=== PATIENT | male | born 1960 | race Caucasian/White ===

== ENCOUNTER 2016-12-02 16:40 | Emergency (ER) | payer OTHER, MEDICARE ==
[~2016-12-02] VITALS: Ht 175.3 cm; Wt 85.9 kg
[2016-12-02] MEDS ORDERED: SULI150T PO (17:02)
[2016-12-02] MEDS ORDERED: OXYC1TAB23 PO (17:02)
[2016-12-02] MEDS ORDERED: PANT40TA2 PO (17:02)
[2016-12-02] MEDS ORDERED: SIMV40TA2 PO (17:02)
[2016-12-02] MEDS ORDERED: BACL10TA2 PO (17:02)
[2016-12-02] MEDS ORDERED: LISI10TA2 PO (17:02)
[2016-12-02] MEDS ORDERED: TRAZ50TA11 PO (17:02)
[2016-12-02 18:31] VITALS: BP 129/85
--- NOTE | 2016-12-02 18:54 | REP ---
REASON: Pain in the neck after trauma. COMPARISON: None. There is disc space narrowing seen at every level which is mild but more moderate at the C6-7 level. The facet joints are well aligned bilaterally. Vertebral body height and alignment is within normal limits. There is no abnormal paraspinal soft-tissue swelling. There is no acute fracture. IMPRESSION: Mild chronic changes. No acute fracture. Signed by Vasquez Barcenas DO 12/02/2016 07:48 P
--- NOTE | 2016-12-02 19:13 | REP ---
HISTORY: Pain after trauma. COMPARISON: None. FINDINGS: Three views of the shoulder were performed. The acromioclavicular and glenohumeral relationships are within normal limits. There is no acute fracture or destructive osseous lesion. Signed by Vasquez Barcenas DO 12/02/2016 07:51 P
--- NOTE | 2016-12-02 19:13 | REP ---
HISTORY: Pain after trauma. COMPARISON: None. TECHNIQUE: 4.5 mm contiguous transaxial sections were obtained from the skull base to the cerebral convexities with thin cuts through the posterior fossa without the administration of intravenous contrast. FINDINGS: The ventricles and sulci are consistent with the patient's age. There are no extra-axial fluid collections. There is no mass effect. The deep cerebral white matter is consistent with the patient's age. The orbital and petrous structures , cerebellopontine angles, and posterior fossa are unremarkable. The sella turcica, cavernous, and paracavernous structures are essentially unremarkable. The visualized portions of the paranasal sinuses and mastoid air cells are clear. Images of the skull base show no gross abnormality. IMPRESSION: Essentially unremarkable CT examination of the brain. Signed by Vasquez Barcenas DO 12/02/2016 07:51 P
== END 2016-12-02 18:36 | disposition home or self-care (01) ==
LOC: EDBD 16:40 → M ED 16:40
DX: S13.9XXA Sprain of joints and ligaments of unspecified parts of neck, initial encounter (principal); S00.93XA Contusion of unspecified part of head, initial encounter; M25.512 Pain in left shoulder; I10 Essential (primary) hypertension; R56.9 Unspecified convulsions; V43.52XA Car driver injured in collision with other type car in traffic accident, initial encounter; Y92.410 Unspecified street and highway as the place of occurrence of the external cause; Y99.9 Unspecified external cause status; Y93.9 Activity, unspecified; Z88.8 Allergy status to other drugs, medicaments and biological substances; Z88.0 Allergy status to penicillin; Z79.899 Other long term (current) drug therapy

== ENCOUNTER 2016-12-07 13:42 | Emergency (ER) | payer OTHER, MEDICARE ==
[~2016-12-07] VITALS: Ht 175.3 cm; Wt 85.9 kg
[~2016-12-07 13:42] MED LIST: BACL10TA2 PO; LISI10TA2 PO; OXYC1TAB23 PO; PANT40TA2 PO; SIMV40TA2 PO; SULI150T PO; TRAZ50TA11 PO
[2016-12-07 16:38] LABS: MEAN CORPUSCULAR HEMOGLOBIN 31.9 pg (27.0-33.0); MEAN CORPUSCULAR HGB CONC 34.3 g/dl (32.0-36.5); MEAN CORPUSCULAR VOLUME 93.1 fl (80.0-96.0); RED CELL DISTRIBUTION WIDTH 12.9 % (11.5-14.5); WHITE BLOOD COUNT 6.4 K/mm3 (4.0-10.0)
[2016-12-07] MEDS ORDERED: TYLE325T5 PO (16:50)
[2016-12-07 16:57] VITALS: BP 135/73
--- NOTE | 2016-12-08 11:45 | REP ---
LEFT HAND SERIES: Four views. HISTORY: Trauma. FINDINGS: Four views of the left hand demonstrate overall normal mineralization. No fracture or subluxation is seen. IMPRESSION: Negative views of the left hand. Signed by Jayce Desai MD 12/08/2016 12:36 P
== END 2016-12-07 17:02 | disposition home or self-care (01) ==
LOC: M ED 13:42
DX: S60.222A Contusion of left hand, initial encounter (principal); K62.5 Hemorrhage of anus and rectum; V49.40XA Driver injured in collision with unspecified motor vehicles in traffic accident, initial encounter; Y92.410 Unspecified street and highway as the place of occurrence of the external cause; Y93.89 Activity, other specified; Y99.9 Unspecified external cause status

== ENCOUNTER 2017-11-06 14:34 | Emergency (ER) | payer MEDICARE, OTHER ==
[2017-11-06 16:13] LABS: BASO % 0.5 % (0.0-1.0); EOS % 0.4 % (0.0-3.0); HEMOGLOBIN 14.9 g/dl (13.5-17.5); IMMATURE GRANULOCYTE % 0.4 % (0-3.0); LYMPH # 1.7 10^3/uL (1.5-4.5); LYMPH % 20.7 % (24.0-44.0); MEAN CORPUSCULAR HEMOGLOBIN 31.3 pg (27.0-33.0); MEAN CORPUSCULAR HGB CONC 33.9 g/dl (32.0-36.5); MEAN CORPUSCULAR VOLUME 92.4 fl (80.0-96.0); MONO # 0.6 10^3/uL (0.0-0.8); NEUTROPHILS # 5.8 10^3/uL (1.8-7.7); PLATELET COUNT, AUTOMATED 252 10^3/uL (150-450); RED BLOOD COUNT 4.76 10^6/uL (4.30-6.10); RED CELL DISTRIBUTION WIDTH 12.8 % (11.5-14.5); WHITE BLOOD COUNT 8.2 10^3/uL (4.0-10.0)
[2017-11-06 16:42] LABS: ANION GAP 7 MEQ/L (8-16); BLOOD UREA NITROGEN 16 MG/DL (7-18); CALCIUM LEVEL 9.1 MG/DL (8.5-10.1); CARBON DIOXIDE LEVEL 30 MEQ/L (21-32); CHLORIDE LEVEL 103 MEQ/L (98-107); CREATININE FOR GFR 0.92 MG/DL (0.70-1.30); FREE T4 1.11 NG/DL (0.76-1.46); GLOMERULAR FILTRATION RATE > 60.0 (>56); GLUCOSE, FASTING 98 MG/DL (70-100); MAGNESIUM LEVEL 2.2 MG/DL (1.8-2.4); POTASSIUM SERUM 3.9 MEQ/L (3.5-5.1); SODIUM LEVEL 140 MEQ/L (136-145); THYROID STIMULATING HORMONE 0.529 uIU/ML (0.358-3.740)
== END 2017-11-06 17:15 | disposition home or self-care (01) ==
LOC: M ED 14:34
DX: F43.0 Acute stress reaction (principal); I10 Essential (primary) hypertension; G43.909 Migraine, unspecified, not intractable, without status migrainosus; R56.9 Unspecified convulsions; K21.9 Gastro-esophageal reflux disease without esophagitis; Z87.442 Personal history of urinary calculi; M54.9 Dorsalgia, unspecified; Z79.899 Other long term (current) drug therapy; Z88.8 Allergy status to other drugs, medicaments and biological substances; Z88.0 Allergy status to penicillin
CPT/HCPCS: 93005

== ENCOUNTER 2018-07-24 17:47 | Emergency (ER) | payer MEDICARE, OTHER ==
[~2018-07-24] VITALS: Ht 175.3 cm; Wt 80.5 kg
[~2018-07-24 17:47] MED LIST changes: -PANT40TA2 PO; +PANT40TA3 PO; +TRAZ-160 PO; -TRAZ50TA11 PO; +TYLE325T5 PO
[2018-07-24 17:49] VITALS: BP 163/93
[2018-07-24] MEDS ORDERED: OXYC-517 (18:03)
[2018-07-24] MEDS ORDERED: OXYC10TA12 PO (18:12)
== END 2018-07-24 18:24 | disposition home or self-care (01) ==
LOC: M ED 17:47
DX: Z76.0 Encounter for issue of repeat prescription (principal); M54.2 Cervicalgia; I10 Essential (primary) hypertension; Z79.891 Long term (current) use of opiate analgesic; Z88.0 Allergy status to penicillin; Z88.8 Allergy status to other drugs, medicaments and biological substances

== ENCOUNTER 2019-03-05 17:44 | Emergency (ER) | payer MEDICARE ==
[~2019-03-05] VITALS: Ht 175.3 cm; Wt 89.5 kg
[~2019-03-05 17:44] MED LIST changes: +LISI10TA15 PO; -LISI10TA2 PO; +OXYC-517; +OXYC10TA12 PO; -TRAZ-160 PO; +TRAZ-252 PO
[2019-03-05] MEDS ORDERED: CYMB1CAP5 PO (17:54)
[2019-03-05 17:58] VITALS: BP 152/98
== END 2019-03-05 19:04 | disposition home or self-care (01) ==
LOC: M ED 17:44
DX: Z76.0 Encounter for issue of repeat prescription (principal); G89.29 Other chronic pain; M25.512 Pain in left shoulder; Z88.0 Allergy status to penicillin; Z88.8 Allergy status to other drugs, medicaments and biological substances; Z79.899 Other long term (current) drug therapy

== ENCOUNTER → 2020-12-05 | Outpatient (CLI) | payer OTHER ==
[~2020-12-05] MED LIST changes: +CYMB1CAP5 PO; +E-Z-GAS II EFFERVESCENT PACKET (SODIUM BICARB./CITRIC ACID/SIMETHICONE) As Ordered ONE; +E-Z-HD 98% w/w 340GM SUSP BTL As Ordered ONE; +E-Z-PAQUE 96% w/w SUSP 176GM BTL As Ordered ONE; +PANT40TA29 PO; -PANT40TA3 PO; -SIMV40TA2 PO; +SIMV40TA20 PO
--- NOTE | 2020-12-05 16:41 | REP ---
INDICATION: GERD, DYSPHAGIA. COMPARISON: None TECHNIQUE: This procedure was performed by Rubina Maloney [facility], under the direct supervision of Dr. Vazquez. Images were reviewed with Dr. Vazquez prior to dictation. Liquid barium and gas producing crystals were given in the erect position, as well as liquid barium in the prone oblique position in order to perform a double contrast esophagram examination. FINDINGS: A single view PA chest x-ray is submitted as a hall manager film. The superior mediastinal structures are midline. The heart size is within normal limits. The lungs are clear. The oral and pharyngeal stages of deglutition were unremarkable. Esophageal transport is prompt and efficient and there is no evidence of esophagitis, stricture, or mucosal ring. During the course of the exam of small amount of barium was seen progressing down the patient's trachea indicating that he had aspirated, without a cough response. There is no evidence of a hiatal hernia. No gastroesophageal reflux was visualized. IMPRESSION: A small amount aspiration was visualized during the exam. 0.4 minutes of fluoroscopy time was utilized for this procedure. Some fluoroscopic images are performed with last image hold technology. These images require no additional radiation. <Electronically signed by Rubina Maloney > 12/05/20 1534 <Electronically signed by Kiko Vazquez > 12/05/20 [id number]
== END ==
LOC: M RAD 08:53
PROVIDERS: ATTEND Physician Assistant Medical
DX: K21.9 Gastro-esophageal reflux disease without esophagitis (principal)

== ENCOUNTER → 2020-12-27 | Outpatient (CLI) | payer OTHER ==
[~2020-12-27] MED LIST changes: -E-Z-GAS II EFFERVESCENT PACKET (SODIUM BICARB./CITRIC ACID/SIMETHICONE) As Ordered ONE; -E-Z-HD 98% w/w 340GM SUSP BTL As Ordered ONE; -E-Z-PAQUE 96% w/w SUSP 176GM BTL As Ordered ONE; +FAMO40TA3 PO
== END ==
LOC: M LABSMTC 10:47
PROVIDERS: ATTEND Anesthesiology
DX: Z11.52 Encounter for screening for COVID-19 (principal)

== ENCOUNTER 2021-01-01 11:02 | Day surgery (SDC) | payer OTHER ==
[~2021-01-01] VITALS: Ht 175.3 cm; Wt 86.2 kg
[~2021-01-01 11:02] MED LIST changes: +NS 1,000 ML IV ONE
[2021-01-01] MEDS ORDERED: propofoL 200 MG/20 ML VIAL As Ordered ONE (11:44)
[2021-01-01] MEDS ORDERED: LIDOCAINE 2% 100MG/5ML SDV (FOR ANES.) As Ordered ONE (11:44)
[2021-01-01] MEDS ORDERED: fentaNYL 100 MCG/2 ML INJECTION (J3010) As Ordered ONE (13:42)
--- NOTE | 2021-01-01 13:58 | ROOR ---
Patient Name: Lorenzo Lau Procedure Date: 01/01/2021 1:37 PM Date of : 1960 Age: 60 Room: [facility] Gender: Male Note Status: Finalized Procedure: Upper GI endoscopy Indications: Oropharyngeal phase dysphagia, Heartburn Providers: Carlitos Brown MD Referring MD: ZI VICTORIA MD Requesting Provider: Medicines: Monitored Anesthesia Care Complications: No immediate complications. Procedure: Pre-Anesthesia Assessment: - The heart rate, respiratory rate, oxygen saturations, blood pressure, adequacy of pulmonary ventilation, and response to care were monitored throughout the procedure. The Endoscope was introduced through the mouth, and advanced to the second part of duodenum. The upper GI endoscopy was accomplished without difficulty. The patient tolerated the procedure well. Findings: A small hiatal hernia was present. The exam was otherwise without abnormality. No endoscopic abnormality was evident in the esophagus to explain the patient's complaint of dysphagia. It was decided, however, to proceed with dilation at the cricopharyngeus. The scope was withdrawn. Dilation was performed with a Escalante dilator with mild resistance at 54 Fr. Impression: - Small hiatal hernia. - The examination was otherwise normal. - No endoscopic esophageal abnormality to explain patient's dysphagia. Esophagus empirically dilated.(54F Escalante dilator). - No specimens collected. Recommendation: - Observe patient's clinical course. - Follow an antireflux regimen. - Continue present medications. - Return to referring physician as previously scheduled. Procedure Code(s): --- Professional --- 16413, Esophagogastroduodenoscopy, flexible, transoral; diagnostic, including collection of specimen(s) by brushing or washing, when performed (separate procedure) 45157, Dilation of esophagus, by unguided sound or bougie, single or multiple passes Diagnosis Code(s): --- Professional --- R12, Heartburn R13.12, Dysphagia, oropharyngeal phase K44.9, Diaphragmatic hernia without obstruction or gangrene CPT copyright 2019 [employer]. All rights reserved. The codes documented in this report are preliminary and upon medical biller/coder review may be revised to meet current compliance requirements. Carlitos Brown MD Carlitos Brown MD 01/01/2021 1:57:41 PM Electronically signed by Carlitos Brown MD Number of Addenda: 0 Note Initiated On: 01/01/2021 1:37 PM Estimated Blood Loss: Estimated blood loss: none.
[2021-01-01 14:21] VITALS: BP 150/99
== END 2021-01-01 14:24 | disposition home or self-care (01) ==
LOC: M OPP 11:02
PROVIDERS: ATTEND Internal Medicine Gastroenterology
DX: K44.9 Diaphragmatic hernia without obstruction or gangrene (principal); R13.12 Dysphagia, oropharyngeal phase; R12 Heartburn; Z88.0 Allergy status to penicillin; Z88.5 Allergy status to narcotic agent; Z79.891 Long term (current) use of opiate analgesic; Z79.899 Other long term (current) drug therapy
CPT/HCPCS: 43235; 43450; J3010

== ENCOUNTER 2021-01-08 13:58 | Emergency (ER) | payer OTHER ==
[~2021-01-08] VITALS: Ht 175.3 cm; Wt 86.7 kg
[~2021-01-08 13:58] MED LIST changes: -NS 1,000 ML IV ONE
[2021-01-08] MEDS ORDERED: KETOROLAC TROMETHAMINE 10 MG TAB PO ONE (17:15)
--- NOTE | 2021-01-08 18:07 | REPVR ---
PROCEDURE INFORMATION: Exam: CT Head Without Contrast Exam date and time: 01/08/2021 5:32 PM Age: 60 years old Clinical indication: Headache; Other: Sharp left temporal pain TECHNIQUE: Imaging protocol: Computed tomography of the head without contrast. Radiation optimization: All CT scans at this facility use at least one of these dose optimization techniques: automated exposure control; mA and/or kV adjustment per patient size (includes targeted exams where dose is matched to clinical indication); or iterative reconstruction. COMPARISON: CT Head without contrast 12/02/2016 5:13 PM FINDINGS: Brain: No hemorrhage. Unremarkable white matter for the patient's age. No mass effect. No evolving territorial infarct. Cerebral ventricles: No ventriculomegaly. Paranasal sinuses: Visualized sinuses are unremarkable. No fluid levels. Mastoid air cells: Visualized mastoid air cells are well aerated. Bones/joints: Unremarkable. No acute fracture. Soft tissues: Unremarkable. IMPRESSION: No acute intracranial abnormality seen. Electronically signed by: Isi Lewis On 01/08/2021 18:06:57 PM
[2021-01-08 18:21] VITALS: BP 140/90
== END 2021-01-08 18:30 | disposition home or self-care (01) ==
LOC: M ED 13:58
DX: R51.9 Headache, unspecified (principal); I10 Essential (primary) hypertension; E78.5 Hyperlipidemia, unspecified; G40.909 Epilepsy, unspecified, not intractable, without status epilepticus; K21.9 Gastro-esophageal reflux disease without esophagitis; Z79.899 Other long term (current) drug therapy; Z88.0 Allergy status to penicillin; Z88.8 Allergy status to other drugs, medicaments and biological substances; F12.20 Cannabis dependence, uncomplicated

== ENCOUNTER → 2021-02-08 | Outpatient (CLI) | payer OTHER ==
[~2021-02-08] MED LIST changes: +BARIUM SULFATE 700 MG TABLET (E-Z-DISK) As Ordered ONE; +E-Z-PAQUE 96% w/w SUSP 176GM BTL As Ordered ONE; +VARIBAR NECTAR 40% w/v 240ML SUSP BTL As Ordered ONE; +VARIBAR PUDDING 40% w/v 230ML TUBE As Ordered ONE
--- NOTE | 2021-02-08 16:21 | REP ---
INDICATION: DYSPHAGIA, UNSPECIFIED. COMPARISON: None. TECHNIQUE: The procedure was performed by SOLO Bullard, under the direct supervision of Dr. Vazquez. The procedure was performed with Nancy Mcgowan from speech pathology present. 5 ml aliquots of thin, pudding, mixed fruit, soft food, hard food and pill consistency barium was administered. FINDINGS: The patient was able to successfully swallow all consistencies of barium given. The detailed report of this examination will be provided by speech pathology. IMPRESSION: The patient was able to successfully swallow all consistencies of barium. Please see detailed report from speech pathology for further details. 0.9 minutes of fluoroscopy time was utilized for this procedure. Some fluoroscopic images are performed with last image hold technology. These images require no additional radiation <Electronically signed by Ama Lucas > 02/08/21 1542 <Electronically signed by Kiko Vazquez > 02/08/21 1611
== END ==
LOC: M RAD 13:25
PROVIDERS: ATTEND Physician Assistant Medical
DX: R13.10 Dysphagia, unspecified (principal); R93.3 Abnormal findings on diagnostic imaging of other parts of digestive tract

== ENCOUNTER 2024-02-20 16:10 | Emergency (ER) | payer OTHER ==
[~2024-02-20] VITALS: Ht 175.3 cm; Wt 81.8 kg
[~2024-02-20 16:10] MED LIST changes: -BARIUM SULFATE 700 MG TABLET (E-Z-DISK) As Ordered ONE; -E-Z-PAQUE 96% w/w SUSP 176GM BTL As Ordered ONE; -LISI10TA15 PO; +LISI10TA24 PO; -VARIBAR NECTAR 40% w/v 240ML SUSP BTL As Ordered ONE; -VARIBAR PUDDING 40% w/v 230ML TUBE As Ordered ONE
[2024-02-20] MEDS ORDERED: DULO1CAP4 PO (16:40)
[2024-02-20 18:51] VITALS: BP 149/97; TEMP 96.4; O2SAT 94
== END 2024-02-20 18:54 | disposition home or self-care (01) ==
LOC: M ED 16:10
DX: S63.602A Unspecified sprain of left thumb, initial encounter (principal); M47.812 Spondylosis without myelopathy or radiculopathy, cervical region; V49.40XA Driver injured in collision with unspecified motor vehicles in traffic accident, initial encounter; Y92.410 Unspecified street and highway as the place of occurrence of the external cause; Y93.89 Activity, other specified; Y99.9 Unspecified external cause status; I10 Essential (primary) hypertension; E78.5 Hyperlipidemia, unspecified; Z88.0 Allergy status to penicillin; Z88.8 Allergy status to other drugs, medicaments and biological substances